=== PATIENT | male | born 1975 | race Caucasian/White ===

== ENCOUNTER 2017-12-31 19:47 | Emergency (ER) | payer OTHER ==
[2017-12-31 20:10] VITALS: BP 140/91
--- NOTE | 2017-12-31 21:12 | EDM.PDOC ---
ED HPI GENERAL MEDICAL PROBLEM - General Chief Complaint: Respiratory Problem Stated Complaint: COUGH SORE THROAT Time Seen by Provider: 12/31/17 20:27 Source of Information: Reports: Patient History Limitations: Reports: Language Barrier - History of Present Illness INITIAL COMMENTS - FREE TEXT/NARRATIVE: 42-year-old male presents for evaluation and treatment of cough and sore throat. Reports his symptoms started on Wednesday. He states that he has a fever of 101 to 102.1. Started vomiting this afternoon. Has vomited twice thus far. Reports chest pain associated with the cough. He is also having a sore throat. No ear pain or abdominal pain. No influenza vaccine this season. Has missed several days of work due to his illness. - Related Data Allergies Allergy/AdvReac Type Severity Reaction Status Date / Time No Known Allergies Allergy Verified 12/31/17 20:10 Home Meds: Home Meds Oseltamivir [Tamiflu] 75 mg PO BID #10 cap 12/31/17 [Rx] Past Medical History - Past Health History Medical/Surgical History: Denies Medical/Surgical History Social & Family History - Tobacco Use Smoking Status *Q: Never Smoker Second Hand Smoke Exposure: No - Caffeine Use Caffeine Use: Reports: None - Alcohol Use Days Per Week of Alcohol Use: 0 - Recreational Drug Use Recreational Drug Use: No - Living Situation & Occupation Living situation: Reports: Occupation: Employed ED ROS GENERAL - Review of Systems Review Of Systems: See Below Constitutional: Reports: Fever, Chills HEENT: Reports: Throat Pain. Denies: Ear Pain Respiratory: Reports: Cough Cardiovascular: Reports: Chest Pain (due to cough) GI/Abdominal: Reports: Vomiting. Denies: Abdominal Pain Neurological: Reports: Headache ED EXAM, GENERAL - Physical Exam Exam: See Below Exam Limited By: No Limitations General Appearance: Alert, WD/WN, No Apparent Distress Ears: Normal External Exam, Normal Canal, Hearing Grossly Normal, Normal TMs Nose: Normal Inspection Throat/Mouth: Normal Inspection, Normal Lips, Normal Voice, No Airway Compromise Respiratory/Chest: No Respiratory Distress, Lungs Clear, Normal Breath Sounds Cardiovascular: Normal Peripheral Pulses, Regular Rate, Rhythm, No Murmur Neurological: Alert, Oriented, Normal Cognition Psychiatric: Normal Affect, Normal Mood Skin Exam: Warm, Dry, Normal Color Course - Vital Signs Last Recorded V/S: Last Vital Signs Temp 36.2 C 12/31/17 20:08 Pulse 95 03/23/18 20:08 Resp 20 12/31/17 20:08 BP 140/91 H 12/31/17 20:08 Pulse Ox 98 12/31/17 20:08 - Re-Assessments/Exams Free Text/Narrative Re-Assessment/Exam: 12/31/17 21:00 Influenza returned positive for type A. Discussed the risk and benefits of Tamiflu. He would like to start the Tamiflu. Discharge instructions as documented. Departure - Departure Time of Disposition: 21:07 Disposition: Home, Self-Care 01 Condition: Fair Clinical Impression: Influenza - Discharge Information Prescriptions: Oseltamivir [Tamiflu] 75 mg PO BID #10 cap Referrals: PCP,None [Primary Care Provider] - Forms: ED Department Discharge, ED Return to Work/School Form Additional Instructions: Take the Tamiflu as prescribed. 1 cap Twice a day for 5 days. Tamiflu is known to cause upset stomach, nausea and diarrhea. You are contagious one day before your symptoms started and up to a week afterwards. Make sure you wash your hands and cover your cough. Rest. Make sure you're drinking plenty of fluids. [id number] Tylenol and Motrin as needed for headaches and additional pain and symptom relief. Follow-up with family medicine if not much better in 1-2 weeks. Please return to the ER for symptoms change or worsen.
== END 2017-12-31 21:18 | disposition home or self-care (01) ==
LOC: JD.ED 19:47
DX: J10.1 Influenza due to other identified influenza virus with other respiratory manifestations (principal)
CPT/HCPCS: 87804; 99283

== ENCOUNTER 2018-11-24 18:22 | Day surgery (SDC) | payer OTHER ==
[2018-11-24] MEDS ORDERED: Iopamidol 612 MG/ML 100 ML Bottle IVPUSH ONE (18:41)
--- NOTE | 2018-11-24 18:51 | EDM.PDOC ---
<YenriddhiGary Nunez - Last Filed: 11/24/18 18:46> ED HPI GENERAL MEDICAL PROBLEM - General Chief Complaint: Gastrointestinal Problem Stated Complaint: PAIN WHEN HE EATS Time Seen by Provider: 11/24/18 18:33 Source of Information: Reports: Patient, Family History Limitations: Reports: Language Barrier - History of Present Illness INITIAL COMMENTS - FREE TEXT/NARRATIVE: The patient was sent from the walk in clinic because he swallowed a tooth pick. He says this happened on Wednesday. It feels like it is stuck in his esophagus in his chest. He says he can eat and drink but certain foods kind of get stuck. The patient speaks Georgian and his is here helping him communicate. He has no fever, chills, cough, shortness of breath, abdominal pain, nausea or vomiting. He has no medical problems. Onset: Sudden Duration: Day(s): (2) Location: Reports: Chest Quality: Reports: Other (Discomfort when swallowing) Severity: Mild Improves with: Reports: None Worsens with: Reports: None Associated Symptoms: Reports: Chest Pain. Denies: Cough, Fever/Chills, Headaches, Nausea/Vomiting, Shortness of Breath upper mid chest Pain Score (Numeric/FACES): 3 - Related Data Allergies Allergy/AdvReac Type Severity Reaction Status Date / Time No Known Allergies Allergy Verified 11/24/18 18:31 Home Meds: Home Meds . [No Known Home Meds] 11/24/18 [History] Past Medical History - Past Health History Medical/Surgical History: Denies Medical/Surgical History Social & Family History - Family History Family Medical History: Noncontributory - Tobacco Use Smoking Status *Q: Never Smoker - Caffeine Use Caffeine Use: Reports: Coffee - Recreational Drug Use Recreational Drug Use: No - Living Situation & Occupation Living situation: Reports: Occupation: Employed ED ROS GENERAL - Review of Systems Review Of Systems: See Below Constitutional: Reports: No Symptoms HEENT: Reports: No Symptoms Respiratory: Reports: No Symptoms Cardiovascular: Reports: Chest Pain (Discomfort with eating) Endocrine: Reports: No Symptoms GI/Abdominal: Reports: No Symptoms : Reports: No Symptoms Musculoskeletal: Reports: No Symptoms ED EXAM, GI/ABD - Physical Exam Exam: See Below Exam Limited By: No Limitations General Appearance: Alert, No Apparent Distress Ears: Normal External Exam Nose: Normal Inspection Head: Atraumatic, Normocephalic Neck: Normal Inspection Respiratory/Chest: No Respiratory Distress, Lungs Clear, Normal Breath Sounds Cardiovascular: Regular Rate, Rhythm, No Edema, No Murmur GI/Abdominal Exam: Soft, Non-Tender, No Organomegaly, No Mass Back Exam: Normal Inspection Extremities: Normal Inspection Course - Vital Signs Last Recorded V/S: Last Vital Signs Temp 36.6 C 11/24/18 18:25 Pulse 74 11/24/18 18:25 Resp 18 11/24/18 18:25 BP 155/100 H 11/24/18 18:25 Pulse Ox 99 11/24/18 18:25 - Orders/Labs/Meds Orders: Active Orders 24 hr Category Date Time Status Cardiac Monitoring [RC] . DIRECTED Care 11/24/18 18:33 Active Peripheral IV Care [RC] . DIRECTED Care 11/24/18 18:34 Active COMPREHENSIVE METABOLIC PN,CMP [CHEM] Stat Lab 11/24/18 19:00 Received LIPASE [CHEM] Stat Lab 11/24/18 19:00 Received Sodium Chloride 0.9% [Normal Saline] 1,000 ml Med 11/24/18 19:15 Active IV ASDIRECTED Sodium Chloride 0.9% [Saline Flush] Med 11/24/18 18:33 Active 10 ml FLUSH ASDIRECTED PRN Peripheral IV Insertion Adult [OM.PC] Stat Oth 11/24/18 18:33 Ordered Medication Orders Sodium Chloride (Normal Saline) 1,000 mls @ 150 mls/hr IV ASDIRECTED PRETTY Last Admin: 11/24/18 19:21 Dose: 150 mls/hr Sodium Chloride (Saline Flush) 10 ml FLUSH ASDIRECTED PRN PRN Reason: Keep Vein Open Last Admin: 11/24/18 19:21 Dose: 10 ml Admin: 11/24/18 19:15 Dose: 10 ml Labs: Laboratory Tests 11/24/18 Range/Units 19:00 WBC 10.05 H (4.23-9.07) K/mm3 RBC 5.17 (4.63-6.08) M/mm3 Hgb 15.1 (13.7-17.5) gm/L Hct 43.7 (40.1-51.0) % MCV 84.5 (79.0-92.2) fl MCH 29.2 (25.7-32.2) pg MCHC 34.6 (32.2-35.5) g/dl RDW Std Deviation 41.3 (35.1-43.9) fL Plt Count 297 (163-337) K/mm3 MPV 9.8 (9.4-12.3) fl Neut % (Auto) 44.8 (34.0-67.9) % Lymph % (Auto) 45.6 (21.8-53.1) % [place] % (Auto) 7.1 (5.3-12.2) % Eos % (Auto) 2.1 (0.8-7.0) Baso % (Auto) 0.2 (0.1-1.2) % Neut # (Auto) 4.51 (1.78-5.38) K/mm3 Lymph # (Auto) 4.58 H (1.32-3.57) K/mm3 [place] # (Auto) 0.71 (0.30-0.82) K/mm3 Eos # (Auto) 0.21 (0.04-0.54) K/mm3 Baso # (Auto) 0.02 (0.01-0.08) K/mm3 Meds: Medications Generic Name Dose Route Start Last Admin Trade Name Freq PRN Reason Stop Dose Admin Sodium Chloride 1,000 mls @ 150 mls/hr 11/24/18 19:15 11/24/18 19:21 Normal Saline IV 150 mls/hr ASDIRECTED PRETTY Administration Sodium Chloride 10 ml 11/24/18 18:33 11/24/18 19:21 Saline Flush FLUSH 10 ml ASDIRECTED PRN Administration Keep Vein Open Discontinued Medications Generic Name Dose Route Start Last Admin Trade Name Freq PRN Reason Stop Dose Admin Iopamidol 100 ml 11/24/18 18:41 11/24/18 19:15 Isovue-300 (61%) IVPUSH 11/24/18 18:42 80 ml ONETIME ONE Administration - Re-Assessments/Exams Free Text/Narrative Re-Assessment/Exam: 11/24/18 18:52 I ordered an IV saline lock, labs and a CT of his chest with contrast. Dr Bhardwaj was in the department and she came to see him. She requested a CT be done. I have ordered that. It is change of shift Dr Marie to take over. Departure - Departure Disposition: DC/Tfer to [facility] Clinical Impression: Foreign body in esophagus - Discharge Information Referrals: PCP,None [Primary Care Provider] - - My Orders Last 24 Hours: My Active Orders 11/24/18 19:15 Sodium Chloride 0.9% [Normal Saline] 1,000 ml IV ASDIRECTED - Assessment/Plan Last 24 Hours: My Active Orders 11/24/18 19:15 Sodium Chloride 0.9% [Normal Saline] 1,000 ml IV ASDIRECTED <Francisco Marie - Last Filed: 11/24/18 19:43> Course - Re-Assessments/Exams Free Text/Narrative Re-Assessment/Exam: 11/24/18 19:[address] Mathis, and the CT reviewed with Dr. Bhardwaj. CT of the chest with contrast read by Dr. Diaz as: 1. 2.3 mm nodule within a subpleural location within the right lung base. The patient is a smoker, recommend follow-up noncontrast chest CT in one year. If patient is a nonsmoker, this can be ignored. 2. Other incidental findings. 3. No additional abnormality is identified on noncontrast-enhanced chest CT. 11/24/18 19:[address] Bhardwaj. She will take the patient to the OR for endoscopy. Departure - Departure Time of Disposition: 19:42 Condition: Good - Discharge Information *PRESCRIPTION DRUG MONITORING PROGRAM REVIEWED*: Not Applicable *COPY OF PRESCRIPTION DRUG MONITORING REPORT IN PATIENT ESTUARDO: Not Applicable
[2018-11-24] MEDS: Sodium Chloride 0.9% 10 ML Syringe FLUSH PRN ×2 (19:15→19:21)
[2018-11-24] MEDS ORDERED: Sodium Chloride 0.9% 1,000 ML IV SCH (19:15)
--- NOTE | 2018-11-24 19:33 | CT ---
CT chest Technique: Multiple axial sections were obtained from above the lung apices inferiorly through the lung bases. Intravenous contrast was utilized. Findings: Small portion of the visualized upper abdominal structures appear within normal limits. No radiopaque foreign object is appreciated within the esophagus. No abnormal densities or fluid is seen around the esophagus. No evidence of mediastinal abscess. Heart size is normal. Aorta and pulmonary arteries appear within normal limits. No pericardial effusion or thickening is seen. Lung window settings were reviewed which shows minimal atelectasis or scarring within the right middle lobe. Small nodule is noted within the inferior right upper lung in a subpleural location measuring 2.3 mm. Lungs otherwise are clear. Bone window settings were obtained which shows minimal degenerative change within the lower thoracic spine. No acute bony abnormality is appreciated. Impression: 1. 2.3 mm nodule within a subpleural location within the right lung base. If patient is a smoker, recommend follow-up noncontrast chest CT in one year. If patient is not a smoker, this can be ignored. 2. Other incidental findings. 3. No additional abnormality is identified on contrast-enhanced chest CT. Diagnostic code #3
[2018-11-24] MEDS ORDERED: Piperacillin/Tazobactam 4.5 GM in Sodium Chloride 0.9% 100 ML IV ONE (19:53)
[2018-11-24] MEDS ORDERED: Sodium Chloride 0.9% 100 ML ONE (19:56)
[2018-11-24] MEDS ORDERED: Lidocaine 1% 4 ML ONE (20:11)
[2018-11-24] MEDS ORDERED: fentaNYL 250 MCG/5 ML SDV ONE (20:11)
[2018-11-24] MEDS ORDERED: Midazolam 1 MG/ML 2 ML SDV ONE (20:11)
[2018-11-24] MEDS ORDERED: Lactated Ringers 1,000 ML ONE (20:11)
[2018-11-24] MEDS ORDERED: Propofol 200 MG/20 ML SDV ONE (20:11)
[2018-11-24] MEDS ORDERED: Succinylcholine/Normal Saline 100 MG/5 ML Syringe ONE (20:11)
[2018-11-24] MEDS ORDERED: Ondansetron 4 MG/2 ML SDV ONE (20:11)
[2018-11-24] MEDS ORDERED: Dexamethasone 4 MG/ML SDV ONE (20:53)
[2018-11-24] MEDS ORDERED: fentaNYL 100 MCG/2 ML SDV IVPUSH PRN (21:05)
[2018-11-24] MEDS ORDERED: Ondansetron 4 MG/2 ML SDV IVPUSH PRN (21:05)
[2018-11-24] MEDS ORDERED: diphenhydrAMINE 50 MG/ML SDV IVPUSH PRN (21:05)
--- NOTE | 2018-11-24 21:11 | PCM.POSTAN ---
POST ANESTHESIA ASSESSMENT - MENTAL STATUS Mental Status: Other (Drowsy) - VITAL SIGNS Pulse Rate: 75 SaO2: 96 Resp Rate: 19 Blood Pressure: 113/57 Temperature: 36.9 C - RESPIRATORY Respiratory Status: Respiratory Rate WNL, Airway Patent, O2 Saturation Stable, Supplemental Oxygen - CARDIOVASCULAR CV Status: Pulse Rate WNL, Blood Pressure Stable - GASTROINTESTINAL GI Status: No Symptoms - PAIN Pain Score: 0 - POST OP HYDRATION Hydration Status: Adequate & Stable
--- NOTE | 2018-11-24 21:14 | PCM.PREANE ---
Preanesthetic Assessment - Anesthesia/Transfusion/Family Hx Anesthesia History: No Prior Anesthesia Family History of Anesthesia Reaction: No - Review of Systems General: No Symptoms Pulmonary: No Symptoms Cardiovascular: No Symptoms Gastrointestinal: No Symptoms (Hurts to swallow. ) Neurological: No Symptoms Other: Reports: None (Gout) - Physical Assessment NPO Status Date: 11/24/18 NPO Status Time: 17:30 (Water sip. Solids at 1300. ) Pulse: 74 O2 Sat by Pulse Oximetry: 99 Respiratory Rate: 18 Blood Pressure: 155/100 Temperature: 36.6 C Vital Signs: Last Vital Signs Temp 36.9 C 11/24/18 21:11 Pulse 75 11/24/18 21:11 Resp 19 11/24/18 21:11 BP 113/57 L 11/24/18 21:11 Pulse Ox 96 11/24/18 21:11 Height: 1.78 m Weight: 90.718 kg ASA Class: 1E Mental Status: Alert & Oriented x3 Airway Class: Mallampati = 1 Dentition: Reports: Normal Dentition Thyro-Mental Finger Breadths: 3 Mouth Opening Finger Breadths: 3 ROM/Head Extension: Full Lungs: Clear to Auscultation, Normal Respiratory Effort Cardiovascular: Regular Rate, Regular Rhythm - Lab Values: Laboratory Last Values WBC 10.05 K/mm3 (4.23-9.07) H 11/24/18 19:00 RBC 5.17 M/mm3 (4.63-6.08) 11/24/18 19:00 Hgb 15.1 gm/L (13.7-17.5) 11/24/18 19:00 Hct 43.7 % (40.1-51.0) 11/24/18 19:00 MCV 84.5 fl (79.0-92.2) 11/24/18 19:00 MCH 29.2 pg (25.7-32.2) 11/24/18 19:00 MCHC 34.6 g/dl (32.2-35.5) 11/24/18 19:00 RDW Std Deviation 41.3 fL (35.1-43.9) 11/24/18 19:00 Plt Count 297 K/mm3 (163-337) 11/24/18 19:00 MPV 9.8 fl (9.4-12.3) 11/24/18 19:00 Neut % (Auto) 44.8 % (34.0-67.9) 11/24/18 19:00 Lymph % (Auto) 45.6 % (21.8-53.1) 11/24/18 19:00 [place] % (Auto) 7.1 % (5.3-12.2) 11/24/18 19:00 Eos % (Auto) 2.1 (0.8-7.0) 11/24/18 19:00 Baso % (Auto) 0.2 % (0.1-1.2) 11/24/18 19:00 Neut # (Auto) 4.51 K/mm3 (1.78-5.38) 11/24/18 19:00 Lymph # (Auto) 4.58 K/mm3 (1.32-3.57) H 11/24/18 19:00 [place] # (Auto) 0.71 K/mm3 (0.30-0.82) 11/24/18 19:00 Eos # (Auto) 0.21 K/mm3 (0.04-0.54) 11/24/18 19:00 Baso # (Auto) 0.02 K/mm3 (0.01-0.08) 11/24/18 19:00 Sodium 143 mEq/L (136-145) 11/24/18 19:00 Potassium 3.9 mEq/L (3.5-5.1) 11/24/18 19:00 Chloride 105 mEq/L (98-107) 11/24/18 19:00 Carbon Dioxide 27 mEq/L (21-32) 11/24/18 19:00 Anion Gap 14.9 (5-15) 11/24/18 19:00 BUN 12 mg/dL (7-18) 11/24/18 19:00 Creatinine 1.1 mg/dL (0.7-1.3) 11/24/18 19:00 Est Cr Clr Drug Dosing 89.41 mL/min 11/24/18 19:00 Estimated GFR (MDRD) > 60 mL/min (>60) 11/24/18 19:00 BUN/Creatinine Ratio 10.9 (14-18) L 11/24/18 19:00 Glucose 115 mg/dL (74-106) H 11/24/18 19:00 Calcium 9.4 mg/dL (8.5-10.1) 11/24/18 19:00 Total Bilirubin 0.5 mg/dL (0.2-1.0) 11/24/18 19:00 AST 30 U/L (15-37) 11/24/18 19:00 ALT 91 U/L (16-63) H 11/24/18 19:00 Alkaline Phosphatase 171 U/L (46-116) H 11/24/18 19:00 Total Protein 8.3 g/dl (6.4-8.2) H 11/24/18 19:00 Albumin 4.6 g/dl (3.4-5.0) 11/24/18 19:00 Globulin 3.7 gm/dL 11/24/18 19:00 Albumin/Globulin Ratio 1.2 (1-2) 11/24/18 19:00 Lipase 93 U/L (73-393) 11/24/18 19:00 - Allergies Allergies/Adverse Reactions: Allergies Allergy/AdvReac Type Severity Reaction Status Date / Time No Known Allergies Allergy Verified 11/24/18 18:31 - Acknowledgements Anesthesia Type Planned: MAC Pt an Appropriate Candidate for the Planned Anesthesia: Yes Alternatives and Risks of Anesthesia Discussed w Pt/Guardian: Yes Pt/Guardian Understands and Agrees with Anesthesia Plan: Yes PreAnesthesia Questionnaire - Past Health History Medical/Surgical History: Denies Medical/Surgical History - SUBSTANCE USE Smoking Status *Q: Never Smoker Recreational Drug Use History: No - HOME MEDS Home Medications: Home Meds . [No Known Home Meds] 11/24/18 [History] - CURRENT (IN HOUSE) MEDS Current Meds: Current Medications Diphenhydramine HCl (Benadryl) 25 mg IVPUSH Q6H PRN PRN Reason: Pruritis Fentanyl (Sublimaze) 50 mcg IVPUSH Q5M PRN PRN Reason: Pain Sodium Chloride (Normal Saline) 1,000 mls @ 150 mls/hr IV ASDIRECTED PRETTY Last Admin: 11/24/18 19:21 Dose: 150 mls/hr Ondansetron HCl (Zofran) 4 mg IVPUSH ONETIME PRN PRN Reason: Nausea/Vomiting Sodium Chloride (Saline Flush) 10 ml FLUSH ASDIRECTED PRN PRN Reason: Keep Vein Open Last Admin: 11/24/18 19:21 Dose: 10 ml Discontinued Medications Dexamethasone (Dexamethasone) Confirm Administered Dose 12 mg .ROUTE .STK-MED ONE Stop: 11/24/18 20:54 Fentanyl (Sublimaze) Confirm Administered Dose 250 mcg .ROUTE .STK-MED ONE Stop: 11/24/18 20:12 Piperacillin Sod/Tazobactam (Sod 4.5 gm/ Sodium Chloride) 100 mls @ 200 mls/hr IV ONETIME ONE Stop: 11/24/18 20:22 Last Admin: 11/24/18 20:02 Dose: 200 mls/hr Sodium Chloride (Normal Saline) Confirm Administered Dose 100 mls @ as directed .ROUTE .STK-MED ONE Stop: 11/24/18 19:57 Last Admin: 11/24/18 20:03 Dose: Not Given Lidocaine HCl (Xylocaine-Mpf 1%) Confirm Administered Dose 4 mls @ as directed .ROUTE .STK-MED ONE Stop: 11/24/18 20:12 Lactated Ringer's (Ringers, Lactated) Confirm Administered Dose 1,000 mls @ as directed .ROUTE .STK-MED ONE Stop: 11/24/18 20:12 Iopamidol (Isovue-300 (61%)) 100 ml IVPUSH ONETIME ONE Stop: 11/24/18 18:42 Last Admin: 11/24/18 19:15 Dose: 80 ml Midazolam HCl (Versed 1 Mg/Ml) Confirm Administered Dose 2 mg .ROUTE .STK-MED ONE Stop: 11/24/18 20:12 Ondansetron HCl (Zofran) Confirm Administered Dose 4 mg .ROUTE .STK-MED ONE Stop: 11/24/18 20:12 Propofol (Diprivan 20 Ml) Confirm Administered Dose 400 mg .ROUTE .STK-MED ONE Stop: 11/24/18 20:12 Succinylcholine Chloride (Succinylcholine In Ns Pf) Confirm Administered Dose 100 mg .ROUTE .STK-MED ONE Stop: 11/24/18 20:12
[2018-11-24 21:41] VITALS: BP 127/74
--- NOTE | 2018-11-24 21:44 | PCM48HPAN ---
Post Anesthesia Note - EVALUATION WITHIN 48HRS OF ANESTHETIC Vital Signs in Normal Range: Yes Patient Participated in Evaluation: Yes Respiratory Function Stable: Yes Airway Patent: Yes Cardiovascular Function Stable: Yes Hydration Status Stable: Yes Pain Control Satisfactory: Yes Nausea and Vomiting Control Satisfactory: Yes Mental Status Recovered: Yes
--- NOTE | 2018-11-25 01:58 | CONS ---
CONSULTING PHYSICIAN: Beatris Bhardwaj MD DATE OF CONSULTATION: 11/24/2018 CHIEF COMPLAINT: Swallowing of a toothpick. HISTORY OF PRESENT ILLNESS: The patient is a patient, who stated that on Wednesday he swallowed a toothpick. He noted immediately that he had some discomfort in the middle of his chest, but no fevers or chills. He has had no spitting up and he has been able to do liquids without problems. He had some other foods chew without significant pain, but the discomfort has progressed over the course of these several days. The patient states that, because of the ongoing pain is why he sought medical attention. He was evaluated in the emergency department and a CT scan does not show any signs of extraluminal air or any signs of mediastinal abscess. The patient himself speaks [place], but does understand Spanish fairly well. His , however, is with as an data communications engineer. He states otherwise he is healthy. PAST MEDICAL HISTORY: None. ALLERGIES: None. CURRENT MEDICATIONS: For gout. SOCIAL HISTORY: Smoking, negative. Alcohol, social. He has 3 children alive and well. Three sisters, 4 brothers. Mom and Dad are all in [place]. He works here in a fpc. REVIEW OF SYSTEMS: He has otherwise been healthy. No history of blurred or double vision. He has no thyroid or hepatitis. He denies any shortness of breath or cough. He has no history of heart. No history of abdominal pain or tenderness. No blood in his urine and no change in his bowel habits. According to the discussion with his and the patient, he has no history of bleeding problems that I could tell. He has had a tooth pulled in the past with anesthesia without difficulty. PHYSICAL EXAMINATION: VITAL SIGNS: GCS is 15. NECK: Without any subcutaneous air. LUNGS: Clear. HEART: Rhythm is regular. He is not tachycardic. ABDOMEN: Totally soft, nontender. EXTREMITIES: Ankles are free of edema. I have reviewed the CT scan and again there is no sign of siddharth mediastinal air. IMPRESSION AND PLAN: Indeed, there is a possibility that he has a piece of toothpick in the mid esophagus is where he points. I clearly explained to the and him that this would not be seen itself on the x-rays, but only because this does not called radiopaque. I explained to them that there is a chance that it could be just imbedded in the wall and this would be something that I could see perhaps with the upper endoscopy. I clearly discussed the risks and benefits to include, but not limited to bleeding, infection, perforation, and even I could probably not even find the foreign body, I could even possibly find it and not be able to get it out. If I want to get it out, there it could then be that he would need to have some additional antibiotics. I offered to transfer him to a higher level of care, they declined. We will go ahead here and see if we can go and proceed with an upper endoscopy. I will go ahead and give him some Unasyn prophylaxis just in case there is something that we can entertain. I explained to the family also the other possibility he just have a little tear of the mucosa and that is why he has some discomfort or even a small ulceration, but this is something that we should be able to see with the scope. Having said this, we are going to proceed. FAVIOLA /[id number]
--- NOTE | 2018-11-25 06:42 | OR ---
DATE OF OPERATION: 11/24/2018 SURGEON: Beatris Bhardwaj MD PREOPERATIVE DIAGNOSIS: Swallowed a toothpick, questionable. POSTOPERATIVE DIAGNOSIS: Swallowed a toothpick, questionable, with normal esophagus. OPERATION PERFORMED: Upper endoscopy to evaluate the esophagus. ANESTHESIA: IV sedation. ESTIMATED BLOOD LOSS: None. BRIEF HISTORY: Evin Mayfield is a 43-year-old male who on Wednesday swallowed half a toothpick. He complained of midsternal pain. He otherwise had no abdominal pain. A CT scan was done to see if there was any signs of perforation and this clearly was normal. At this point in time, we are going to scope him to see if we can see if there is any embedded foreign body. I had the opportunity to discuss the risks and benefits with Mr. Mayfield and his . Risks included bleeding, infection, heart attack, , injury to structures not intended, and even that we might not even find anything. Having said that, they agreed to proceed. DESCRIPTION OF PROCEDURE: The patient was taken to the operating room. Time-out was performed. Then he was placed on his left side down with a bite-block. IV sedation was begun. We had a little bit of difficulty passing the scope because he had a pretty good gag reflex, but after a bit of time I was able to pass it into the esophagus. Clearly, the esophagus looked normal. There was no ulcerations that I could appreciate and there was no signs of inflammation. I was able to pass the scope all the way down into the stomach. I then slowly came out again, the GE junction looked normal and again when I got a good look I could not see any gross pathology. There was 1 area that looked like there was a little extra mucosa, but I was able to irrigate it off and it looked normal. I then went all the way back up to the epiglottis. Instructions: I talked to the and stated that I did not see anything at this time. However, the toothpick could be imbedded in the submucosal area and I would not be able to see it, but there was nothing at this point in time to give me the suspicion that it is there. The discharge diet will be regular and he will be followed up as needed. The seemed pleased. MMODAL /[id number]
== END 2018-11-24 21:53 | disposition home or self-care (01) ==
LOC: JD.ED 18:22 → JD.SDS 20:24
PROVIDERS: ATTEND Surgery
DX: R07.2 Precordial pain (principal)
CPT/HCPCS: 36415; 43235; 71260; 80053; 83690; 85025; 96361; 96365; 99284; J1100; J2001; J2250; J2405; J2543; J2704; J3010; J7030; J7040; J7120; Q9967; 00731; J0330